=== PATIENT | female | born 1975 | race Caucasian/White ===

== ENCOUNTER 2020-06-11 13:14 | Outpatient (CLI) | payer SELFPAY ==
--- NOTE | 2020-06-11 13:18 | XR_ITS ---
WS: [id number] Thoracic spine, 3 views, 06/11/2020 Clinical Data: THORACIC REGION BACK PAIN Comparison: None. Findings: No compression fractures are seen. The disc heights are normal. The paravertebral regions are normal. XR/XR thoracic spine 3V* [id number] Impression: Negative thoracic spine.
== END 2020-06-11 13:15 | disposition home or self-care (01) ==
LOC: RAD 13:16
PROVIDERS: PCP Family Medicine; Visit Provider Family Medicine
DX: M54.6 Pain in thoracic spine (principal)
CPT/HCPCS: 72072

== ENCOUNTER → 2022-07-04 09:55 | Outpatient (BNVA) | payer OTHER, SELFPAY | PROVIDERS: PCP Family Medicine; Visit Provider Family Medicine | DX: Z00.00 Encounter for general adult medical examination without abnormal findings (principal); N95.1 Menopausal and female climacteric states | CPT/HCPCS: 80053; 80061; 82672; 83001; 83002; 84144; 84402; 84403; 84443 ==